=== PATIENT | male | born 1990 | race Caucasian/White ===

== ENCOUNTER 2020-05-22 12:58 | Emergency (ER) | payer BC, OTHER ==
--- OUTSIDE RECORDS SUMMARY | 2020-05-22 13:00 | XMS REPORT | Continuity of Care Document ---
:1990 Author Organization [facility] t Address [address] [place] [address] Care Team Providers Name Role Phone Zen Attending Clinician [phone] Po, [facility] Attending Clinician Unavailable Samira Cooley Attending Clinician Problems This patient has no known problems. Allergies, Adverse Reactions, Alerts This patient has no known allergies or adverse reactions. Medications This patient has no known medications. Procedures This patient has no known procedures. Encounters Start End Encounter Admission Attending Care Care Encounter Source Date/Time Date/Time Type Type Clinicians Facility Department ID 2020-04-24 2020-04-24 Outpatient Zen [facility] [id number] 00:00:00 00:00:00 Janice [id number] 2019-06-13 2019-06-13 Urgent Pob1, Acute [facility] [id number] 13:56:18 15:05:04 [facility] [id number] [place] [id number] Professio [phone] [address]al [address] 2019-06-13 2019-06-13 [facility] [id number] 00:00:00 00:00:00 [facility] [id number] [place] [id number] Professio [phone] [phone] Results This patient has no known results.
[2020-05-22 14:00] LABS: Absolute Lymphocytes (CBC) 1.8 K/uL (0.7-4.9); Basophils % 0.7 % (0-1.3); Hematocrit 44.4 % (39.6-49.0); Lymphocytes % 32.2 % (15.3-44.8); MPV 7.8 fL (7.6-11.3); RBC Red Blood Cell Count 5.13 M/uL (4.33-5.43)
[2020-05-22 14:10] LABS: ALT/SGPT 26 U/L (12-78); AST/SGOT 17 U/L (15-37); Albumin 4.2 g/dL (3.4-5.0); Alkaline Phosphatase 77 U/L (45-117); BUN Blood Urea Nitrogen 16 mg/dL (7-18); Bicarbonate 31 mmol/L (21-32); Bilirubin Direct < 0.1 mg/dL (0-0.2); Bilirubin Total 0.4 mg/dL (0.2-1.0); Glucose Level 99 mg/dL (74-106); Lipase 54 U/L (73-393); Potassium 3.9 mmol/L (3.5-5.1); Sodium Level 139 mmol/L (136-145)
[2020-05-22 14:24] LABS: Urine Bacteria <20 /HPF (NONE SEEN); Urine RBC NONE SEEN /HPF (NONE SEEN)
--- NOTE | 2020-05-22 16:13 | RAD REPORT ---
EXAM DESCRIPTION: CT - Abdomen Pelvis W Contrast - 05/22/2020 3:54 pm CLINICAL HISTORY: ABD PAIN COMPARISON: <Comparisons> TECHNIQUE: Biphasic, helical CT imaging of the abdomen and pelvis was performed following 100 ml non -ionic IV contrast. Oral contrast was given. All CT scans are performed using dose optimization technique as appropriate and may include automated exposure control or mA/KV adjustment according to patient size. FINDINGS: No suspicious findings in the lung bases. The liver, spleen, and pancreas show no suspicious findings. Gallbladder and biliary tree are also wi thout suspicious finding. Symmetric renal function is seen with no hydronephrosis or suspicious renal mass. No pyelonephritis o r acute parenchymal process. No bladder abnormalities. No adrenal abnormalities. No dilated bowel loops or bowel wall thickening. No appendicitis findings. No active GI process seen. Oral contrast has reached the rectum. No free air, free fluid or inflammatory stranding. No hernia, mass or bulky lymphadenopathy. Patient does have a few nonspecific sub centimeter mesenteric lymph n odes. No suspicious bony findings. IMPRESSION: No appendicitis or other emergent CT abdomen or pelvis finding. Patient has a few small nonspecific sub centimeter sized mesenteric lymph nodes.
--- NOTE | 2020-05-22 17:48 | EDPHYS ---
Physician Documentation [facility] Name: René Neely Age: 30 yrs Sex: Male : 1990 Arrival Date: 05/22/2020 Time: 13:01 Bed 7 Private MD: ED Physician Florencio Guillen HPI: 05/22 13:51 This 30 yrs old Male presents to ER via Ambulatory with complaints of jr8 Abdominal Pain. 13:51 The patient presents with abdominal pain in the right upper quadrant, right lower jr8 quadrant. Onset: The symptoms/episode began/occurred last week. The symptoms radiate to right back. Patient reports RLQ/RMQ abd pain that radiates to R flank x 1.5 weeks. He Denies N/V/D and does have appendix. . Historical: - Allergies: 13:15 No Known Allergies; ca1 - Home Meds: 13:15 insulin pump [Active]; ca1 - PMHx: 13:15 Diabetes - IDDM; ca1 - PSHx: 13:15 None; ca1 - Immunization history:: Flu vaccine is up to date. - Social history:: Smoking status: Patient reports the use of cigarette tobacco products, smokes one pack cigarettes per day. ROS: 13:54 Cardiovascular: Negative for chest pain, palpitations, and edema, Respiratory: Negative jr8 for shortness of breath, cough, wheezing, and pleuritic chest pain, MS/Extremity: Negative for injury and deformity, Skin: Negative for injury, rash, and discoloration, Neuro: Negative for headache, weakness, numbness, tingling, and seizure. 13:54 Abdomen/GI: Positive for abdominal pain, of the anterior aspect of left lateral abdomen, posterior aspect of left lateral abdomen, right upper quadrant and right lower quadrant. 13:54 Back: Negative for CVA tenderness. 13:54 : Negative for urinary symptoms, flank pain, difficulty urinating, testicular pain 13:54 All other systems are negative. Exam: 13:55 Chest/axilla: Normal chest wall appearance and motion. Nontender with no deformity. jr8 No lesions are appreciated. Cardiovascular: Regular rate and rhythm with a normal S1 and S2. No gallops, murmurs, or rubs. Normal PMI, no JVD. No pulse deficits. Respiratory: Lungs have equal breath sounds bilaterally, clear to auscultation and percussion. No rales, rhonchi or wheezes noted. No increased work of breathing, no retractions or nasal flaring. Skin: Warm, dry with normal turgor. Normal color with no rashes, no lesions, and no evidence of cellulitis. Neuro: Awake and alert, GCS 15, oriented to person, place, time, and situation. Cranial nerves II-XII grossly intact. Motor strength 5/5 in all extremities. Sensory grossly intact. Cerebellar exam normal. Normal gait. 13:55 Abdomen/GI: Inspection: abdomen appears normal, Bowel sounds: normal, in all quadrants, Palpation: severe abdominal tenderness, in the right upper quadrant and right lower quadrant, rebound tenderness, is appreciated in the left lower quadrant, Indicators: McBurney's point is tender, Rovsing's sign is positive. 13:55 Back: CVA tenderness, is absent. 16:59 Abdomen/GI: Indicators: Hewitt's sign is positive, Hewitt's sign atypical but present. [facility] Vital Signs: 13:12 BP 138 / 94; Pulse 89; Resp 15 S; Temp 97.9(TE); Pulse Ox 98% on R/A; Weight 90.72 kg ca1 (R); Height 6 ft. 6 in. (198.12 cm) (R); Pain 8/10; 17:00 BP 114 / 64; Pulse 74; Resp 14; Pulse Ox 100% ; Pain 7/10; hb 13:12 Body Mass Index 23.11 (90.72 kg, 198.12 cm) ca1 MDM: 13:16 Patient medically screened. [facility] 17:44 Data reviewed: vital signs, nurses notes, lab test result(s), radiologic studies, CT jr8 scan, ultrasound. Data interpreted: Pulse oximetry: on room air is 100 %. Interpretation: normal. Counseling: I had a detailed discussion with the patient and/or guardian regarding: the historical points, exam findings, and any diagnostic results supporting the discharge/admit diagnosis, lab results, radiology results, the need for outpatient follow up, a retail event and sales assistant, to return to the emergency department if symptoms worsen or persist or if there are any questions or concerns that arise at home. ED course: No acute findings on CT or US. Labs stable. Will have patient f/u with GI to r/o acalculous cholecystitis. Knows to come back if worse . 19:29 ED course: Attempted call to pt about US results. NA. LM on VM. . [facility] 05/22 13:16 Order name: Basic Metabolic Panel; Complete Time: 14:13 [facility] 05/22 13:16 Order name: CBC with Diff; Complete Time: 14:22 [facility] 05/22 13:16 Order name: Hepatic Function; Complete Time: 14:13 [facility] 05/22 13:16 Order name: Lipase; Complete Time: 14:13 [facility] 05/22 13:31 Order name: Urine Microscopic Only; Complete Time: 14:24 [facility] 05/22 14:25 Order name: Urine Dipstick--Ancillary (enter results) em 05/22 13:16 Order name: IV Saline Lock; Complete Time: 13:50 [facility] 05/22 13:16 Order name: Labs collected and sent; Complete Time: 13:50 [facility] 05/22 13:31 Order name: Urine Dipstick-Ancillary (obtain specimen); Complete Time: 14:09 [facility] 05/22 14:09 Order name: CT Abd/Pelvis - PO and IV Contrast; Complete Time: 16:32 [facility] 05/22 14:25 Order name: Urine Dipstick-Ancillary; Complete Time: 14:41 [facility] 05/22 16:37 Order name: US Abdomen Limited [facility] Administered Medications: No medications were administered Disposition: 05/23 08:18 Co-signature as Attending Physician, Florencio Guillen MD I agree with the assessment and kdr plan of care. Disposition: 05/22/20 17:47 Discharged to Home. Impression: Right upper quadrant pain. - Condition is Stable. - Discharge Instructions: Abdominal Pain, Adult, Biliary Colic, Adult. - Medication Reconciliation Form, Thank You Letter, Antibiotic Education, Prescription Opioid Use form. - Follow up: Edgar Field MD; When: 5 - 6 days; Reason: Recheck today's complaints, Continuance of care, Re-evaluation by your physician. - Problem is new. - Symptoms have improved. Signatures: Dispatcher [employer] EDKY Florencio Guillen MD MD [facility] Demetra Maya RN RN Chris Humphreys PA PA 8 Denise Heaton RN RN ca1 Corrections: (The following items were deleted from the chart) 05/22 17:54 17:47 05/22/2020 17:47 Discharged to Home. Impression: Right upper quadrant pain. ss Condition is Stable. Forms are Medication Reconciliation Form, Thank You Letter, Antibiotic Education, Prescription Opioid Use. Follow up: Edgar Field; When: 5 - 6 days; Reason: Recheck today's complaints, Continuance of care, Re-evaluation by your physician. Problem is new. Symptoms have improved. jr8
--- NOTE | 2020-05-22 17:48 | ER ---
Nurse's Notes [facility] Name: René Neely Age: 30 yrs Sex: Male : 1990 Arrival Date: 05/22/2020 Time: 13:01 Bed 7 Private MD: Diagnosis: Right upper quadrant pain Presentation: 05/22 13:12 Chief complaint: Patient states: RUQ pain radiating to the back x 1 - 1.5 week. Worse ca1 since 0200 today. Denies N/V/D. Coronavirus screen: Client denies travel out of the [place] in the last 14 days. At this time, the client does not indicate any symptoms associated with coronavirus-19. Ebola Screen: Patient negative for fever greater than or equal to 101.5 degrees Fahrenheit, and additional compatible Ebola Virus Disease symptoms Patient denies exposure to infectious person. Patient denies travel to an Ebola-affected area in the 21 days before illness onset. No symptoms or risks identified at this time. Initial Sepsis Screen: Does the patient meet any 2 criteria? No. Patient's initial sepsis screen is negative. Does the patient have a suspected source of infection? No. Patient's initial sepsis screen is negative. Risk Assessment: Do you want to hurt yourself or someone else? Patient reports no desire to harm self or others. Onset of symptoms was May 22, 2020. 13:12 Method Of Arrival: Ambulatory ca1 13:12 Acuity: TALAT 3 ca1 Historical: - Allergies: 13:15 No Known Allergies; ca1 - Home Meds: 13:15 insulin pump [Active]; ca1 - PMHx: 13:15 Diabetes - IDDM; ca1 - PSHx: 13:15 None; ca1 - Immunization history:: Flu vaccine is up to date. - Social history:: Smoking status: Patient reports the use of cigarette tobacco products, smokes one pack cigarettes per day. Screenin:50 Abuse screen: Denies threats or abuse. Denies injuries from another. Nutritional ss screening: No deficits noted. Tuberculosis screening: Never had TB. Fall Risk None identified. Assessment: 13:51 General: Appears in no apparent distress. comfortable, Behavior is calm, cooperative, ss Denies fever, feeling ill, fatigue, chills. Pain: Complains of pain in right upper quadrant and right lower quadrant Pain currently is 8 out of 10 on a pain scale. Quality of pain is described as tender, "feels like my insides are being ripped out." Pain began 1-1.5 weeks ago. Pt states that pain was intermittent, but is becoming more continuous now Is. Neuro: Level of Consciousness is awake, alert, obeys commands, Oriented to person, place, time, situation, Fire Marshal are equal bilaterally Speech is normal, Facial symmetry appears normal. Cardiovascular: Capillary refill < 3 seconds is brisk in bilateral fingers. Respiratory: Airway is patent Trachea midline Respiratory effort is even, unlabored, Respiratory pattern is regular, symmetrical. GI: Bowel sounds present X 4 quads. Abd is soft X 4 quads Abdomen is tender to palpation in suprapubic area and right upper quadrant Patient currently denies diarrhea, nausea, vomiting. : Denies burning with urination, urinary frequency. EENT: Nares are clear Oral mucosa is moist. Derm: Skin is intact, is healthy with good turgor, Skin is dry, Skin is pink, warm \\T\\ dry. normal. Musculoskeletal: Circulation, motion, and sensation intact. Range of motion: intact in all extremities, Swelling absent. 15:00 Reassessment: Patient appears in no apparent distress at this time. Patient and/or ss family updated on plan of care and expected duration. Pain level reassessed. 16:07 Reassessment: Patient appears in no apparent distress at this time. Patient and/or ss family updated on plan of care and expected duration. Pain level reassessed. Pt to CT now, ambulatory. 17:21 Reassessment: Patient appears in no apparent distress at this time. Patient and/or ss family updated on plan of care and expected duration. Pain level reassessed. Patient is alert, oriented x 3, equal unlabored respirations, skin warm/dry/pink. awaiting US results. Vital Signs: 13:12 BP 138 / 94; Pulse 89; Resp 15 S; Temp 97.9(TE); Pulse Ox 98% on R/A; Weight 90.72 kg ca1 (R); Height 6 ft. 6 in. (198.12 cm) (R); Pain 8/10; 17:00 BP 114 / 64; Pulse 74; Resp 14; Pulse Ox 100% ; Pain 7/10; hb 13:12 Body Mass Index 23.11 (90.72 kg, 198.12 cm) ca1 ED Course: 13:01 Patient arrived in ED. rg4 13:14 Triage completed. ca1 13:15 Arm band placed on right wrist. ca1 13:16 Chris Humphreys PA is PHCP. jr8 13:16 Florencio Guillen MD is Attending Physician. jr8 13:50 Demetra Maya, RN is Primary Nurse. ss 13:50 Patient has correct armband on for positive identification. Bed in low position. Call ss light in reach. 14:00 Inserted saline lock: 20 gauge in right antecubital area, using aseptic technique. ss Blood collected. 14:30 Urine Dipstick--Ancillary (enter results) Sent. sv 15:54 CT Abd/Pelvis - PO and IV Contrast In Process Unspecified. EDMS 17:12 US Abdomen Limited In Process Unspecified. EDMS 17:46 Edgar Field MD is Referral Physician. jr8 17:53 No provider procedures requiring assistance completed. IV discontinued, intact, ss bleeding controlled, No redness/swelling at site. Pressure dressing applied. Administered Medications: No medications were administered Outcome: 17:47 Discharge ordered by . jr8 17:54 Discharged to home ambulatory. ss 17:54 Condition: good 17:54 Discharge instructions given to patient, Instructed on discharge instructions, follow up and referral plans. Demonstrated understanding of instructions, follow-up care, medications. 17:54 Patient left the ED. Signatures: Dispatcher [employer] Rosaura Sharma RN RN Demetra Maya, MARTINEZ HENRIQUEZ Chris Humphreys PA PA jr8 Kenia Rollins RN RN hb Garcia, Rubi rg4 Denise Heaton RN RN ca1
--- NOTE | 2020-05-22 19:13 | RAD REPORT ---
EXAM DESCRIPTION: US - Abdomen Exam Limited - 05/22/2020 5:12 pm CLINICAL HISTORY: R/O gall stones, right upper quadrant pain COMPARISON: Abdomen Pelvis W Contrast dated 05/22/2020 FINDINGS: No gallstones, measurable quantity of sludge or other abnormalities within the gallbladder lumen. There is no wall thickening or pericholecystic fluid. No common duct stone or biliary tree dilatation identified. IMPRESSION: Normal gallbladder and biliary tree ultrasound.
[2020-05-23 08:48] VITALS: BP 138/94; TEMP 97.9; O2SAT 98
[2020-05-28 13:56] LABS: Urine Blood Negative (Negative); Urine Glucose Negative (Negative); Urine Protein Negative (Negative); Urine pH 5.5 (5.0-7.0)
== END 2020-05-22 17:54 | disposition home or self-care (01) ==
LOC: ER 12:58
DX: R10.11 Right upper quadrant pain (principal); E11.9 Type 2 diabetes mellitus without complications; F17.210 Nicotine dependence, cigarettes, uncomplicated; Z96.41 Presence of insulin pump (external) (internal); Z79.4 Long term (current) use of insulin
CPT/HCPCS: 85025; 80048; 36415; 80076; 83690; 74177; 76705; 99283; Q9967; 81003; 81015